=== PATIENT | male | born 1965 | race Caucasian/White ===

== ENCOUNTER → 2024-02-14 | Outpatient (CLI) | payer OTHER ==
--- NOTE | 2024-02-14 22:15 | MR ---
EXAMINATION TYPE: MR shoulder LT wo con DATE OF EXAM: 02/14/2024 COMPARISON: NONE HISTORY: Left shoulder pain x1 year but getting worse, difficult to raise arm TECHNIQUE: Multiplanar, multisequence imaging of the left shoulder is performed without contrast. FINDINGS: Rotator Cuff: Intact supraspinatus and infraspinatus tendons. Increased signal and heterogeneity with partial tearing of the subscapularis tendon . Mild atrophy of the subscapularis muscle bulk. Acromioclavicular Joint: Mild to moderate narrowing and mild spurring with more moderate to severe ca psular hypertrophy. Loss of underlying fat plane is noted. Glenohumeral Joint: Small sized joint effusion. No significant spurring. Narrowing is seen. Labrum: Increased signal superior labrum consistent with degenerative tearing coronal image 14. Biceps Tendon: The long head of biceps is in normal location within bicipital groove. Bone marrow signal: No focal abnormal marrow signal is appreciated. Other: No additional significant abnormality is appreciated. IMPRESSION: 1. Tendinosis and partial tearing of the subscapularis tendon. 2. Degenerative superior labral tear. 3. 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 [facility], , 02/14/2024 10:12 PM
== END | disposition home or self-care (01) ==
LOC: RADMRIMAIN 20:45
PROVIDERS: ATTEND Orthopaedic Surgery
DX: S46.012A Strain of muscle(s) and tendon(s) of the rotator cuff of left shoulder, initial encounter (principal); M19.012 Primary osteoarthritis, left shoulder; M25.812 Other specified joint disorders, left shoulder; M67.814 Other specified disorders of tendon, left shoulder